=== PATIENT | female | born 1945 ===

== ENCOUNTER 2022-12-22 07:45 | Inpatient (IN) | payer OTHER ==
[~2022-12-22] VITALS: Ht 154.9 cm; Wt 45.4 kg
[2022-12-22] MEDS ORDERED: CARDIZEM CD300 MG PO (08:23)
[2022-12-22] MEDS ORDERED: TOPROL XL50 M1 PO (08:23)
[2022-12-22] MEDS ORDERED: COZAAR100 MG PO (08:24)
[2022-12-22] MEDS ORDERED: SYNTHROID125 MCG PO (08:24)
[2022-12-22] MEDS ORDERED: ASPI PO (08:25)
[2022-12-22] MEDS ORDERED: SINGULAIR10 MG PO (08:25)
[2022-12-22] MEDS ORDERED: LIPIT PO (08:25)
[2022-12-22 09:18] LABS: HEMATOCRIT 38.8 % (36.0-45.00); HEMOGLOBIN 13.4 g/dL (12.0-15.00); MEAN CELL VOLUME 86.5 fL (80.00-100.00); MEAN CORPUSCULAR HEMOGLOBIN 29.8 pg (27.00-32.0); MEAN CORPUSCULAR HGB CONC 34.5 g/dl (32.0-36.0); PLATELET COUNT 162 K/uL (150-450); RED BLOOD COUNT 4.49 M/uL (4.00-6.00)
[2022-12-22 09:18] LABS: URINE APPEARANCE Clear; URINE BILIRRUBIN Negative (NEGATIVE); URINE BLOOD Negative; URINE COLOR Yellow; URINE GLUCOSE Negative (NEGATIVE); URINE LEUKOCYTE Negative; URINE NITRATE Negative; URINE PROTEIN Negative (NEGATIVE)
[2022-12-22 09:46] LABS: URINE EPITHELIAL CELLS 0.6 uL (0.0-38.8); URINE WBC 0.4 uL (0.0-23.2)
[2022-12-22 09:47] LABS: INR 1.03; PARTIAL THROMBOPLASTIN TIME 25.4 SECONDS (22.0-34.0); PROTHROMBIN TIME 10.8 SECONDS (9.0-11.5)
[2022-12-22 09:54] LABS: BILIRUBIN TOTAL 0.64 mg/dL (0.3-1.2); CALCIUM 9.6 mg/dL (8.5-10.1); CREATININE SERUM 0.89 mg/dL (0.55-1.02); GFR 61.18; GLOBULINA 2.6 G/DL (2.4-3.5); POTASSIUM 4.4 mEq/L (3.5-5.1); TOTAL PROTEIN 6.6 gm/dL (6.4-8.2)
[2022-12-28 07:00] LABS: HEMATOCRIT 34.4 % (36.0-45.00); HEMOGLOBIN 11.9 g/dL (12.0-15.00); MEAN CELL VOLUME 86.9 fL (80.00-100.00); MEAN CORPUSCULAR HEMOGLOBIN 30.1 pg (27.00-32.0); MEAN CORPUSCULAR HGB CONC 34.6 g/dl (32.0-36.0); PLATELET COUNT 145 K/uL (150-450); RED BLOOD COUNT 3.96 M/uL (4.00-6.00); RED CELL DISTRIBUTION WIDTH 14.5 % (11.5-14.5)
[2022-12-28] MEDS ORDERED: DUI500 PO (07:32)
[2022-12-28] MEDS ORDERED: ELIQUIS2.5 MG PO (07:32)
[2022-12-28] MEDS ORDERED: PERCOCET 5-3251 EACH PO (07:32)
[2022-12-29 06:51] LABS: HEMATOCRIT 28.9 % (36.0-45.00); HEMOGLOBIN 10.4 g/dL (12.0-15.00); MEAN CELL VOLUME 86.6 fL (80.00-100.00); MEAN CORPUSCULAR HEMOGLOBIN 31.2 pg (27.00-32.0); RED BLOOD COUNT 3.33 M/uL (4.00-6.00); RED CELL DISTRIBUTION WIDTH 14.1 % (11.5-14.5)
[2022-12-29 07:09] LABS: PLATELET COUNT 121 K/uL (150-450)
== END 2022-12-29 14:27 | DRG 470 ==
LOC: O/R 12-27 05:43 → SURH 12-27 07:45 → SURG 12-27 14:24
PROVIDERS: ADMIT Orthopaedic Surgery; ATTEND Orthopaedic Surgery
PROC: 0SR90JZ Replacement of Right Hip Joint with Synthetic Substitute, Open Approach (ICD-10-PCS; principal; 2022-12-27 10:00)
DX: M16.11 Unilateral primary osteoarthritis, right hip (principal); D62 Acute posthemorrhagic anemia; M25.751 Osteophyte, right hip; M70.61 Trochanteric bursitis, right hip; I10 Essential (primary) hypertension

== ENCOUNTER 2023-12-11 07:15 | Inpatient (IN) | payer OTHER ==
[~2023-12-11] VITALS: Ht 154.9 cm; Wt 54.4 kg
[~2023-12-11 07:15] MED LIST: ASPI PO; CARDIZEM CD300 MG PO; COZAAR100 MG PO; DUI500 PO; ELIQUIS2.5 MG PO; LIPIT PO; PERCOCET 5-3251 EACH PO; SINGULAIR10 MG PO; SYNTHROID125 MCG PO; TOPROL XL50 M1 PO
[2023-12-11 08:26] LABS: HEMATOCRIT 41.1 % (36.0-45.00); MEAN CORPUSCULAR HEMOGLOBIN 30.7 pg (27.00-32.0); MEAN CORPUSCULAR HGB CONC 34.2 g/dl (32.0-36.0); PLATELET COUNT 207 K/uL (150-450); RED BLOOD COUNT 4.56 M/uL (4.00-6.00); RED CELL DISTRIBUTION WIDTH 14.5 % (11.5-14.5)
[2023-12-11] MEDS ORDERED: TOPROL XL50 M1 (08:49)
[2023-12-11 08:52] LABS: PARTIAL THROMBOPLASTIN TIME 25.8 SECONDS (22.0-34.0); PROTHROMBIN TIME 10.9 SECONDS (9.0-11.5)
[2023-12-11 09:03] LABS: URINE APPEARANCE Clear; URINE BILIRRUBIN Negative (NEGATIVE); URINE BLOOD Negative; URINE COLOR Yellow; URINE GLUCOSE Negative (NEGATIVE); URINE KETONE Negative (NEGATIVE); URINE LEUKOCYTE Small; URINE NITRATE Negative; URINE PROTEIN Negative (NEGATIVE)
[2023-12-11 09:08] LABS: URINE BACTERIA 90.6 uL (0.0-1933); URINE EPITHELIAL CELLS 6.7 uL (0.0-38.8); URINE RBC 4.1 uL (0.0-20.8)
[2023-12-11 09:36] LABS: BILIRUBIN TOTAL 0.65 mg/dL (0.3-1.2); CALCIUM 9.6 mg/dL (8.5-10.1); CREATININE SERUM 0.89 mg/dL (0.55-1.02); GFR 61.02; GLOBULINA 2.9 G/DL (2.4-3.5); POTASSIUM 4.81 mEq/L (3.5-5.1); TOTAL PROTEIN 6.9 gm/dL (6.4-8.2)
[2023-12-19] MEDS ORDERED: ATORVASTATIN CA20 MG (10:35)
[2023-12-19] MEDS ORDERED: PREGABALIN100 MG (10:35)
[2023-12-19] MEDS ORDERED: CYCLOSPORINE1 EACH (10:35)
[2023-12-19] MEDS ORDERED: ALENDRONATE SOD70 MG (10:35)
[2023-12-19] MEDS ORDERED: OMEPRAZOLE40 MG (10:35)
[2023-12-19] MEDS ORDERED: GABAPENTIN300 M2 (10:35)
[2023-12-19] MEDS ORDERED: FLUOROMETHOLONE5 ML (10:35)
[2023-12-19] MEDS ORDERED: KETOROLAC TROMETHAMINE 60 MG VIAL IM ONE (12:30)
[2023-12-19] MEDS ORDERED: MORPHINE SULFATE 4 MG/ML VIAL IV ONE ×2 (12:30→20:25)
[2023-12-19] MEDS ORDERED: TRANEXAMIC ACID 100MG/1ML (1000MG) AMPUL IV SCH (12:30)
[2023-12-19] MEDS ORDERED: CEFAZOLIN SODIUM 1,000 MG VIAL IV ONE ×2 (12:30→18:30)
[2023-12-19] MEDS ORDERED: TRANEXAMIC ACID 100MG/1ML (1000MG) AMPUL IV ONE ×3 (12:30→18:30)
[2023-12-19] MEDS ORDERED: OxyCODONE HCL 5 MG TABLET (ROXICODONE) PO PRN (18:30)
[2023-12-19] MEDS ORDERED: VANCOMYCIN HCL 1,000 MG VIAL IR ONE (18:30)
[2023-12-19] MEDS ORDERED: MORPHINE SULFATE 4 MG/ML CARTRIDGE IV PRN (18:30)
[2023-12-19] MEDS ORDERED: LIDOCAINE HCL 2%/EPINEPHRINE 20ML VIAL IJ ONE (18:30)
[2023-12-19] MEDS ORDERED: SODIUM CHLORIDE 0.45 % 1,000 ML IV SCH (18:30)
[2023-12-19] MEDS ORDERED: BUPIVACAINE HCL/PF 0.25% 30ML VIAL InF ONE (18:30)
[2023-12-19] MEDS ORDERED: ONDANSETRON HCL 2 MG/ML VIAL IV PRN (18:30)
[2023-12-19] MEDS ORDERED: MORPHINE SULFATE 2 MG/ML CARTRIDGE IV ONE (19:55)
[2023-12-19] MEDS ORDERED: MEPERIDINE HCL/PF 25 MG/ML VIAL IV ONE (20:45)
[2023-12-19] MEDS ORDERED: MEPERIDINE HCL 25 MG/ML AMPUL IV ONE (20:55)
[2023-12-19 21:40] VITALS: BP 133/76; O2SAT 95
[2023-12-19 23:54] VITALS: BP 148/81; O2SAT 95
[2023-12-20] MEDS ORDERED: ACETAMINOPHEN 500 MG GEL..CAP PO SCH
[2023-12-20] MEDS ORDERED: GABAPENTIN 300 MG CAPSULE PO SCH (01:00)
[2023-12-20] MEDS ORDERED: CEFAZOLIN SODIUM 1,000 MG VIAL IV SCH (01:00)
[2023-12-20 06:15] LABS: HEMATOCRIT 34.8 % (36.0-45.00); MEAN CELL VOLUME 89.2 fL (80.00-100.00); MEAN CORPUSCULAR HEMOGLOBIN 30.7 pg (27.00-32.0); MEAN CORPUSCULAR HGB CONC 34.4 g/dl (32.0-36.0); PLATELET COUNT 134 K/uL (150-450); RED CELL DISTRIBUTION WIDTH 14.2 % (11.5-14.5)
[2023-12-20 08:00] VITALS: BP 160/76; O2SAT 96
[2023-12-20] MEDS ORDERED: DUI500 PO (08:17)
[2023-12-20] MEDS ORDERED: PERCOCET 5-3251 EACH PO (08:17)
[2023-12-20] MEDS ORDERED: ELIQUIS2.5 MG PO (08:17)
[2023-12-20] MEDS ORDERED: SENNOSIDES 1 TAB TABLET PO SCH (09:00)
[2023-12-20] MEDS ORDERED: APIXABAN 2.5 MG TABLET PO SCH (09:00)
[2023-12-20] MEDS ORDERED: SOD FERRIC GLUC COMPLX/SUCROSE 62.5 MG/5 ML AMPUL IV SCH (17:09)
[2023-12-20 19:47] VITALS: BP 157/78; O2SAT 98
[2023-12-21] VITALS: BP 162/73; O2SAT 95
[2023-12-21 01:51] VITALS: BP 144/74
[2023-12-21 06:53] LABS: HEMOGLOBIN 11.8 g/dL (12.0-15.00); MEAN CELL VOLUME 88.8 fL (80.00-100.00); MEAN CORPUSCULAR HEMOGLOBIN 30.9 pg (27.00-32.0); MEAN CORPUSCULAR HGB CONC 34.8 g/dl (32.0-36.0); RED BLOOD COUNT 3.83 M/uL (4.00-6.00); RED CELL DISTRIBUTION WIDTH 14.2 % (11.5-14.5)
[2023-12-21 07:02] LABS: PLATELET COUNT 112 K/uL (150-450)
[2023-12-21 08:00] VITALS: BP 186/83; O2SAT 95
[2023-12-21] MEDS ORDERED: VITAMIN B COMPLEX 1 EACH PO SCH (09:00)
[2023-12-21] MEDS ORDERED: Cyanocobalamin/Mecobalamin 1 TAB.SL SL SCH (09:00)
[2023-12-21] MEDS ORDERED: IRON FUM,PS/FOLIC ACID/VITC/B3 1 CAP CAPSULE PO SCH (09:00)
[2023-12-21 16:42] VITALS: BP 151/77; O2SAT 989
[2023-12-21 23:05] VITALS: BP 137/70; O2SAT 95
[2023-12-22 08:12] VITALS: BP 109/55; O2SAT 95
== END 2023-12-22 10:46 | DRG 470 ==
LOC: O/R 12-19 06:55 → SURH 12-19 07:15 → SURG 12-19 13:20
PROVIDERS: ADMIT Orthopaedic Surgery; ATTEND Orthopaedic Surgery
PROC: 0MBM0ZZ Excision of Left Hip Bursa and Ligament, Open Approach (ICD-10-PCS; 2023-12-19)
PROC: 0SRD0JZ Replacement of Left Knee Joint with Synthetic Substitute, Open Approach (ICD-10-PCS; principal; 2023-12-19 09:45)
DX: M16.12 Unilateral primary osteoarthritis, left hip (principal); M25.652 Stiffness of left hip, not elsewhere classified; M70.62 Trochanteric bursitis, left hip